=== PATIENT | male | born 1985 | race Caucasian/White ===

== ENCOUNTER 2018-08-15 14:15 | Emergency (ER) | payer SELFPAY ==
[~2018-08-15] VITALS: Ht 182.9 cm; Wt 90.9 kg
[2018-08-15 14:17] VITALS: BP 136/83
== END 2018-08-15 15:01 | disposition home or self-care (01) ==
LOC: ER 14:16
DX: F32.9 Major depressive disorder, single episode, unspecified (principal)
CPT/HCPCS: 99284